=== PATIENT | female | born 1985 | race African-American/Black ===

== ENCOUNTER → 2016-08-21 | Day surgery (SDC) | payer OTHER ==
[~2016-08-21] MED LIST: BP MED; DOCUSATE SODIU100 MG PO; DOXYCYCLINE MO100 MG PO; NIFEDIPINE ER30 MG PO; NORMODYNE100 M1; OMEPRAZOLE20 M2 PO; PRENATAL VITAM1 EAC2; [UNRECOGNIZED DRUG - REMARK]
--- NOTE | ~2016-08-21 | OR ---
Unit #: [id number] #: [id number] Patient: JANETTE BAKER [id number] [address] [address] [id number] O MR#: [id number] NAME: JANETTE BAKER ROOM: Date of Procedure: 08/21/2016 Admission Date: 08/21/2016 Surgeon: Armando Bradley M.D. : 1985 Attending Physician: Armando Bradley M.D. Referring Physician: Armando Bradley M.D. OPERATIVE REPORT NAME OF PROCEDURE EGD with biopsy. INDICATIONS A 30-year-old female, with history of achalasia, status post myotomy 15 years ago at [facility] now with GERD symptoms, undergoing evaluation with upper endoscopy. MEDICATIONS Monitored anesthesia. POSTOPERATIVE FINDINGS 1. Distal esophagus, mid esophagus with severe esophagitis and stasis. It was completely full with partly digested food. There was thick curdy white deposits, possible tender esophagitis. Biopsies were taken. 2. Retroflex view in the stomach shows possible Jackie kind of surgery in the past. 3. Normal stomach. 4. Normal duodenum and distal duodenum. PLAN 1. PPI therapy. 2. Treatment with Diflucan, if biopsies are positive. 3. Diet discussed. We will get a barium swallow, also we will get the surgery report from past. DESCRIPTION OF PROCEDURE The patient was explained of the procedure, risks, and benefits along with risks and benefits of anesthesia. She was brought to the endoscopy room. Propofol anesthesia was given. Bite block was placed. The scope was passed down the mouth into the esophagus, stomach, duodenum, and distal duodenum. Findings have been described. Biopsies were taken in the esophagus. Gently, the scope was pulled out. She tolerated it well. Dictated by... Oxana Infante/tima TD: 08/22/2016 13:55 Unit #: [id number] #: [id number] Patient: JANETTE BAKER JOB #: [id number] OPERATIVE REPORT Page 1 of 1 X Armando Bradley MD PROCEDURE OPERATIVE NOTE
== END | disposition home or self-care (01) ==
LOC: COPS 09:03
DX: K21.0 Gastro-esophageal reflux disease with esophagitis (principal); K22.0 Achalasia of cardia; M41.9 Scoliosis, unspecified; I10 Essential (primary) hypertension; Z98.890 Other specified postprocedural states; Z79.899 Other long term (current) drug therapy
CPT/HCPCS: 84703; 88305; 88312; J2250

== ENCOUNTER → 2016-10-01 | Outpatient (CLI) | payer OTHER ==
--- NOTE | ~2016-10-01 | CR97 ---
[facility] A Service of [facility] RADIOLOGY TEXT RESULTS PATIENT: JANETTE BAKER LOCATION: [facility] : 81 UNIT #: [id number] AGE: [address]: Armando Bradley MD SEX: F ORDER DR: [id number] [facility]. [place], [place] [address] [id number] O MR#: [id number] Acc #: [id number] NAME: JANETTE BAKER : 1985 SEX: F STUDY DATE/TIME: 10/01/2016 11:03 UNIT: [facility] ROOM: STUDY DESCRIPTION: CR Esophagram Attending Physician: Armando Bradley M.D. Referring Physician: Armando Bradley M.D. Ordering Physician: Armando Bradley M.D. Primary Care Physician: Mary Akhtar MEDICAL IMAGING REPORT This report is preliminary unless electronic signature is present EXAM Esophagram. INDICATION Achalasia. Gastroesophageal reflux. Prior distal esophageal myomectomy. FINDINGS Double-contrast esophagram was performed. The esophagus is diffusely distended throughout the esophagus with gradual tapering at the EG junction. This is consistent with the patient's history of achalasia. There is some mild stasis of the contrast column, however, contrast does pass through the EG junction into the stomach. There is generalized esophageal dysmotility throughout the esophagus. No focal mass is identified. No gastroesophageal reflux was visualized. Fluoroscopic time 1 minute. 31 images acquired. IMPRESSION Dilated thoracic esophagus with focal tapering at the EG junction. This is consistent with the patient's history of achalasia. Dictated by... Shekhar Waddell M.D. THIS IS AN ELECTRONICALLY VERIFIED REPORT Shekhar Waddell M.D. at 10/02/2016 2:49 PM TY/hugo TD: 10/01/2016 16:49 JOB #: [id number] [facility] A Service of [facility] RADIOLOGY TEXT RESULTS PATIENT: JANETTE BAKER LOCATION: [facility] : 81 UNIT #: [id number] AGE: [address]: Armando Bradley MD SEX: F ORDER DR: MEDICAL IMAGING REPORT Page 1 of 1 COPY
== END | disposition home or self-care (01) ==
LOC: CRAD 10:27
DX: K21.9 Gastro-esophageal reflux disease without esophagitis (principal); K22.8 Other specified diseases of esophagus
CPT/HCPCS: 74220